=== PATIENT | female | born 1995 | race Caucasian/White ===

== ENCOUNTER 2016-12-21 06:36 | Emergency (ER) | payer MEDICAID ==
[~2016-12-21] VITALS: Ht 162.6 cm; Wt 45.5 kg
[~2016-12-21 06:36] MED LIST: BENZ0.5T PO; CLON0.5T PO; DOXE10CA PO; OLAN15TA3 PO; ZIPR80CA2 PO
[2016-12-21 06:37] VITALS: BP 121/65
[2016-12-21] MEDS ORDERED: ONDANSETRON 2MG/ML, 2ML ONE (06:55)
[2016-12-21] MEDS ORDERED: FAMOTIDINE 20 MG/2 ML ONE (06:55)
[2016-12-21] MEDS ORDERED: FAMOTIDINE 20 MG/2 ML IVP ONE (07:00)
[2016-12-21] MEDS ORDERED: SODIUM CHLORIDE 0.9% 1,000ML IVBOLUS ONE (07:00)
[2016-12-21] MEDS ORDERED: ONDANSETRON 2MG/ML, 2ML IVPush ONE (07:00)
[2016-12-21 07:23] LABS: ASPARTATE AMINO TRANSFERASE 12 U/L (15-37); BLOOD UREA NITROGEN 8 mg/dL (7-18)
[2016-12-21] MEDS ORDERED: LORazepam 2 MG/ML, 1ML ONE (07:44)
[2016-12-21] MEDS ORDERED: LORazepam 2 MG/ML, 1ML IVPush ONE (08:00)
== END 2016-12-21 07:53 | disposition left against medical advice (07) ==
LOC: ED 07:18
DX: R11.2 Nausea with vomiting, unspecified (principal); Z88.8 Allergy status to other drugs, medicaments and biological substances
CPT/HCPCS: 36415; 80053; 84703; 85025; 96361; 96374; 96375; 99284; J2405; J7030; S0028

== ENCOUNTER 2018-08-30 15:18 | Emergency (ER) | payer MEDICAID, OTHER ==
[~2018-08-30] VITALS: Ht 160 cm; Wt 44.6 kg
[~2018-08-30 15:18] MED LIST changes: +ARIP10TA33 PO; -BENZ0.5T PO; +BENZ0.5T35 PO; +DOXY100C2 PO; +FURO40TA6 PO; +LEVO100T5 PO; +LISI-424 PO; +LOPE2CAP PO; +VALA500T PO
[2018-08-30 16:58] VITALS: BP 111/60
--- NOTE | 2018-08-30 17:03 | NUR ---
PT GIVEN DC INSTRUCTIONS AND SCRIPT, EDUCATED REGARDING DC RX FOR FLEXIRIL. PT A&O, RESPS EVEN AND UNLABORED, NADN. PT A&O, RESPS EVEN AND UNLABORED. NEURO INTACT, BILATERAL GRASPS EQUAL, NO DRIFT. PT AMB TO DC DESK WITH STEADY GAIT, ALL QUESTIONS ANSWERED.
== END 2018-08-30 17:07 | disposition home or self-care (01) ==
LOC: ED 16:53
DX: S09.8XXA Other specified injuries of head, initial encounter (principal); S16.1XXA Strain of muscle, fascia and tendon at neck level, initial encounter; F31.9 Bipolar disorder, unspecified; F17.200 Nicotine dependence, unspecified, uncomplicated; V49.50XA Passenger injured in collision with unspecified motor vehicles in traffic accident, initial encounter; Y92.413 State road as the place of occurrence of the external cause; Y93.89 Activity, other specified; Y99.8 Other external cause status
CPT/HCPCS: 70450; 72125; 99284

== ENCOUNTER 2019-11-28 19:18 | Emergency (ER) | payer MEDICAID ==
[~2019-11-28] VITALS: Ht 162.6 cm; Wt 57.5 kg
[~2019-11-28 19:18] MED LIST changes: -VALA500T PO; +VALA500T8 PO
--- NOTE | 2019-11-28 20:04 | NUR ---
PT PRESENTS WITH LLE SWELLING AND ERRYTHMA. PT DENIES TRAUMA TO EXTREMITY OR INSECT BITE OF ANY KIND. PT STATES SHE WOKE THIS AM AND HER LEG APPEARED NORMAL, THEN OVER THE LAST FIVE HRS HER LEG HAS SWOLLEN WITH APPROX 2+ EDEMA, ERRTHMA AND WARM TO THE TOUCH. PT STATES SHE ALSO HAS HAD A SORE THROAT FOR THE LAST COUPLE DAYS, A FEVER A COUPLE NIGHTS AGO, PT NOT SURE OF TEMP DEGREE. PT VERY DROWSY KEEPS FALLING ASLEEP DURING ASSESSMENT, DENIES DRUG USE/ETOH
[2019-11-28 20:18] LABS: HCG UR SG 1.018 (1.003-1.030); MICROSCOPIC NOT IND
--- NOTE | 2019-11-28 20:32 | NUR ---
ERMD IN TO UPDATE ON PT +HCG. AWAITING TAN ROOM SUPERVISOR US TECH FOR DUPLEX/OBS US
[2019-11-28 20:40] LABS: BASOPHILS # (AUTO) 0.04 x10^3/uL (0-0.1); BASOPHILS % (AUTO) 0 % (0-1); EOSINOPHILS # (AUTO) 0.12 x10^3/uL (0-0.4); EOSINOPHILS % (AUTO) 1 % (1-7); LYMPHOCYTES # (AUTO) 2.99 x10^3/uL (1-3.4); LYMPHOCYTES % (AUTO) 27 % (22-44); MD NO; MEAN CORPUSCULAR HEMOGLOBIN 29.8 pg (27.0-34.8); MEAN CORPUSCULAR HGB CONC 33.2 g/dL (32.4-35.8); MEAN CORPUSCULAR VOLUME 89.8 fL (80-100); MEAN PLATELET VOLUME 7.3 fL (7.4-10.4); MONOCYTES # (AUTO) 1.02 x10^3/uL (0.2-0.8); MONOCYTES % (AUTO) 9 % (2-9); NEUTROPHILS # (AUTO) 6.91 x10^3/uL (1.8-6.8); NEUTROPHILS % (AUTO) 62 % (42-75); PLATELET COUNT 284 x10^3/uL (130-400); RED BLOOD COUNT 3.96 x10^6/uL (3.82-5.3); RED CELL DISTRIBUTION WIDTH 13.6 % (9.6-15.2)
[2019-11-28 20:49] LABS: ALANINE AMINOTRANSFERASE 18 U/L (12-78); ANION GAP 5 mmol/L (5-15); CALCIUM 8.4 mg/dL (8.5-10.1); CHLORIDE 107 mmol/L (98-107); CREATININE 0.63 mg/dL (0.55-1.02)
[2019-11-28 20:51] LABS: ALKALINE PHOSPHATASE 59 U/L (45-117); BILIRUBIN,TOTAL 0.2 mg/dL (0.2-1.0); TOTAL PROTEIN 6.2 g/dL (6.4-8.2)
--- NOTE | 2019-11-28 21:11 | NUR ---
PT REPORT FROM CLARK ODOM. PT CARE TO BE ASSUMED.
--- NOTE | 2019-11-28 21:51 | NUR ---
PT RESTING QUIETLY ON GURNEY; AWAITING U/S. SIDE RAIL UP, CALL LIGHT W/IN REACH. NO ADDITIONAL NEEDS AT THIS TIME.
--- NOTE | 2019-11-28 21:56 | NUR ---
CALLED U/S. PER TECH, U/S's WERE COMPLETED.
--- NOTE | 2019-11-28 22:06 | NUR ---
PT REPORT TO CLARK THURMAN. PT CARE TRANSFERRED.
[2019-11-28 22:15] VITALS: BP 102/61
--- NOTE | 2019-11-28 22:16 | NUR ---
RECEVIED REPORT FROM SOPHIA RODAS. CARE ASSUMED. PT A&OX4, SITTING UP IN BED USING OWN CELL PHONE. DENIES ANY PAIN AND NEED TO USE RESTROOM. VSS. AWAITING RECHECK. CALL LIGHT IN REACH. FALL PRECAUTIONS IN PLACE.
--- NOTE | 2019-11-28 22:29 | NUR ---
ERP DR. SANDY AT BEDSIDE TO DISCUSS POC AND TEST RESULTS
--- NOTE | 2019-11-28 22:34 | NUR ---
BEDSIDE REPORT FROM CUCA RODAS, PT CARE TRANSFERRED AT THIS TIME. RESTING IN [facility], CALL LIGHT ON LAP, [facility].
--- NOTE | 2019-11-28 22:34 | NUR ---
REPORT AND TRANSFER OF CARE TO KAREY RODAS AT THIS TIME.
== END 2019-11-28 22:51 | disposition home or self-care (01) ==
LOC: ED 21:35
DX: O00.01 Abdominal pregnancy with intrauterine pregnancy (principal); L01.01 Non-bullous impetigo; J02.9 Acute pharyngitis, unspecified; M79.662 Pain in left lower leg; F17.200 Nicotine dependence, unspecified, uncomplicated; Z3A.01 Less than 8 weeks gestation of pregnancy; Z90.89 Acquired absence of other organs
CPT/HCPCS: 36415; 76801; 80053; 81003; 81025; 84702; 85025; 87081; 87880; 99285

== ENCOUNTER 2020-06-22 15:57 | Inpatient (IN) | payer MEDICAID ==
[~2020-06-22] VITALS: Ht 162.6 cm; Wt 54.5 kg
[2020-06-22] MEDS: LACTATED RINGERS 1,000 ML IV SCH ×5 (16:30→19:49)
[2020-06-22] MEDS ORDERED: MISOPROSTOL 200 MCG TABLET ONE (16:38)
[2020-06-22] MEDS ORDERED: AMPICILLIN 2 GM in SODIUM CHLORIDE 0.9% 100 ML IVPB ONE (16:38)
[2020-06-22] MEDS ORDERED: NEWBORN KIT ONE (16:38)
[2020-06-22] MEDS ORDERED: LIDOCAINE 1%, 20ML ONE (16:38)
[2020-06-22] MEDS ORDERED: OXYTOCIN 30U/ 0.9% NaCL 500ML 500 ML ONE (16:38)
[2020-06-22 16:43] LABS: AMPHETAMINE SCREEN, URINE Positive (Negative); BARBITURATE SCREEN, URINE Negative (Negative); BENZODIAZEPINE SCREEN, URINE Negative (Negative); CANNABINOID SCREEN, URINE Positive (Negative); COCAINE SCREEN, URINE Negative (Negative); METHADONE SCREEN, URINE Negative (Negative); OPIATE SCREEN, URINE Positive (Negative)
[2020-06-22 17:00] LABS: BASOPHILS % (AUTO) 0 % (0-1); EOSINOPHILS % (AUTO) 0 % (1-7); LYMPHOCYTES % (AUTO) 16 % (22-44); MEAN CORPUSCULAR HGB CONC 33.4 g/dL (32.4-35.8); MEAN PLATELET VOLUME 8.8 fL (7.4-10.4); MONOCYTES % (AUTO) 8 % (2-9); NEUTROPHILS % (AUTO) 76 % (42-75); PLATELET COUNT 262 x10^3/uL (130-400); RED BLOOD COUNT 4.29 x10^6/uL (3.82-5.3)
[2020-06-22] MEDS ORDERED: ONDANSETRON 2MG/ML, 2ML IVPush PRN (17:00)
[2020-06-22] MEDS ORDERED: OXYTOCIN 30U/ 0.9% NaCL 500ML 500 ML IV ONE (17:00)
[2020-06-22] MEDS ORDERED: TERBUTALINE 1 MG/ML, 1ML SQ PRN (17:00)
[2020-06-22] MEDS ORDERED: FENTANYL PF 100 MCG/2ML IVPush PRN (17:00)
[2020-06-22] MEDS ORDERED: CALCIUM CARBONATE 500 MG TAB.CHEW PO PRN (17:00)
[2020-06-22] MEDS: PLEASE ENTER HEIGHT AND WEIGHT MC SCH (17:00)
[2020-06-22] MEDS ORDERED: TERBUTALINE 1 MG/ML, 1ML IVPush PRN (17:00)
[2020-06-22] MEDS ORDERED: D5%-LACTATED RINGERS 1,000 ML IV SCH (17:00)
[2020-06-22 17:02] LABS: MD NO
[2020-06-22] MEDS ORDERED: BUPIVACAINE 0.25% ONE (17:11)
[2020-06-22] MEDS ORDERED: FENTANYL/BUPIV./NS/PF 250 ML EPIDCONT ONE (17:12)
[2020-06-22 17:47] LABS: MICROSCOPIC INDICATED
[2020-06-22] MEDS ORDERED: FENTANYL/BUPIV./NS/PF 250 ML EPIDCONT SCH (18:00)
[2020-06-22] MEDS ORDERED: AMPICILLIN 1 GM in SODIUM CHLORIDE 0.9% 100 ML IVPB SCH (18:00)
[2020-06-22] MEDS ORDERED: EPHEDRINE 50 MG/ML, 1ML IVPush PRN (18:00)
[2020-06-22] MEDS ORDERED: LACTATED RINGERS 1,000 ML IVBOLUS PRN (18:00)
[2020-06-22] MEDS ORDERED: LACTATED RINGERS 1,000 ML IV SCH (18:00)
[2020-06-22] MEDS ORDERED: OXYTOCIN 10 UNITS/ML, 1ML ONE (18:14)
[2020-06-22] MEDS ORDERED: ONDANSETRON 2MG/ML, 2ML ONE (18:14)
[2020-06-22] MEDS ORDERED: CEFAZOLIN 1,000 MG ONE (18:14)
[2020-06-22] MEDS ORDERED: HYDROmorphone 2 MG/ML, 1ML ONE (18:15)
[2020-06-22] MEDS ORDERED: FENTANYL PF 100 MCG/2ML ONE (18:15)
[2020-06-22] MEDS ORDERED: KETOROLAC 30 MG/1 ML ONE (18:54)
[2020-06-22] MEDS ORDERED: METHYLERGONOVINE 0.2 MG/ML IM PRN (19:30)
[2020-06-22] MEDS ORDERED: OXYcodone/APAP 5/325MG TABLET PO PRN (19:30)
[2020-06-22] MEDS ORDERED: SIMETHICONE 80 MG CHEW TAB PO PRN (19:30)
[2020-06-22] MEDS ORDERED: MORPHINE SULFATE 4 MG/ML, 1ML IVPush PRN (19:30)
[2020-06-22] MEDS ORDERED: IBUPROFEN 800 MG TABLET PO PRN (19:30)
[2020-06-22] MEDS ORDERED: MISOPROSTOL 200 MCG TABLET PR PRN (19:30)
[2020-06-22] MEDS ORDERED: morphine SULFATE 10 MG/ML, 1ML IVPush PRN (19:30)
[2020-06-22] MEDS ORDERED: DOCUSATE 100 MG CAPSULE PO PRN (19:30)
[2020-06-22] MEDS ORDERED: ONDANSETRON 2MG/ML, 2ML IV PRN ×2 (19:30→21:30)
[2020-06-22] MEDS: OXYTOCIN 30U/ 0.9% NaCL 500ML 500 ML IV SCH (19:49)
[2020-06-22] MEDS ORDERED: OXYcodone 5 MG/5 ML ORAL.SOL UDC ONE (20:56)
[2020-06-22] MEDS ORDERED: OXYcodone 5 MG/5 ML ORAL.SOL UDC PO PRN (21:30)
[2020-06-22] MEDS ORDERED: AZITHROMYCIN 500 MG in SODIUM CHLORIDE 0.9% 250 ML IV ONE (21:30)
[2020-06-22] MEDS ORDERED: OXYcodone 5 MG/5 ML ORAL.SOL UDC PO ONE (21:30)
[2020-06-22] MEDS ORDERED: LACTATED RINGERS 1,000 ML IVBOLUS ONE (21:30)
[2020-06-22] MEDS ORDERED: HYDROmorphone 2 MG/ML, 1ML IV PRN (21:30)
[2020-06-22 21:45] VITALS: BP 133/85
[2020-06-23] MEDS: PLEASE ENTER HEIGHT AND WEIGHT MC SCH (01:00)
[2020-06-23 01:15] VITALS: BP 138/88
[2020-06-23] MEDS: KETOROLAC 30 MG/1 ML IV SCH ×2 (01:15→07:26)
[2020-06-23] MEDS: OXYcodone/APAP 5/325MG TABLET PO PRN ×3 (01:16→09:55)
[2020-06-23 02:56] LABS: BASOPHILS % (AUTO) 0 % (0-1); EOSINOPHILS % (AUTO) 0 % (1-7); LYMPHOCYTES % (AUTO) 10 % (22-44); MEAN CORPUSCULAR HGB CONC 33.3 g/dL (32.4-35.8); MEAN PLATELET VOLUME 8.3 fL (7.4-10.4); MONOCYTES % (AUTO) 7 % (2-9); NEUTROPHILS % (AUTO) 83 % (42-75); PLATELET COUNT 235 x10^3/uL (130-400); RED BLOOD COUNT 3.91 x10^6/uL (3.82-5.3); RED CELL DISTRIBUTION WIDTH 13.2 % (9.6-15.2)
[2020-06-23 02:57] LABS: MD NO
[2020-06-23 04:30] VITALS: BP 134/83
[2020-06-23] MEDS: LACTATED RINGERS 1,000 ML IV SCH ×3 (05:15→09:48)
[2020-06-23] MEDS: OXYTOCIN 30U/ 0.9% NaCL 500ML 500 ML IV SCH (05:30)
[2020-06-23 07:25] VITALS: BP 145/72
[2020-06-23 08:00] VITALS: BP 126/77
[2020-06-23] MEDS ORDERED: PRENATAL VIT/IRON/FA 1 EACH TABLET PO SCH (09:00)
[2020-06-23 12:10] VITALS: BP 133/84
== END 2020-06-23 13:15 | disposition left against medical advice (07) | DRG 787 ==
LOC: LDOP 15:57 → LDIP 16:51 → 2NW 21:31
PROVIDERS: ADMIT Obstetrics & Gynecology; ATTEND Obstetrics & Gynecology
PROC: 10D00Z1 Extraction of Products of Conception, Low, Open Approach (ICD-10-PCS; principal; 2020-06-22)
DX: O77.9 Labor and delivery complicated by fetal stress, unspecified (principal); O99.324 Drug use complicating childbirth; Z37.0 Single live birth; Z3A.37 37 weeks gestation of pregnancy; O99.344 Other mental disorders complicating childbirth; F32.9 Major depressive disorder, single episode, unspecified; F41.9 Anxiety disorder, unspecified; O99.52 Diseases of the respiratory system complicating childbirth; J45.909 Unspecified asthma, uncomplicated; F15.10 Other stimulant abuse, uncomplicated; F12.10 Cannabis abuse, uncomplicated; F11.10 Opioid abuse, uncomplicated
CPT/HCPCS: 36415; 80307; 81001; 82570; 84156; 85025; 86592; 86762; 86803; 86850; 86900; 87086; 87340; 87635; 87806; 88307; G0378; J0290; J0456; J0690; J1170; J1885; J2405; J3010; G0475; J2590; J7050; J7120

== ENCOUNTER 2020-06-23 17:46 | Emergency (ER) | payer MEDICAID ==
[~2020-06-23] VITALS: Ht 162.6 cm; Wt 75.4 kg
[2020-06-23] MEDS ORDERED: SODIUM CHLORIDE FLUSH 10ML SYR IVF ONE (18:00)
[2020-06-23] MEDS ORDERED: LORazepam 2 MG/ML, 1ML IVPush ONE (18:30)
--- NOTE | 2020-06-23 18:45 | NUR ---
PT C/O INCISION BLEEDING AND SUPPORT SYSTEM WHO REQUESTED PT TO GO BACK TO HOSPITAL. PT CHECKED OUT AMA FROM THE HOSPITAL THIS AM. PT HAD A YESTERDAY AND DELIVERED A BABY GIRL. PT HAS EDEMA TO LOWER EXTS AND HANDS.
[2020-06-23 18:50] LABS: BASOPHILS % (AUTO) 0 % (0-1); EOSINOPHILS % (AUTO) 0 % (1-7); LYMPHOCYTES % (AUTO) 12 % (22-44); MEAN CORPUSCULAR HEMOGLOBIN 29.6 pg (27.0-34.8); MEAN PLATELET VOLUME 8.5 fL (7.4-10.4); MONOCYTES % (AUTO) 8 % (2-9); NEUTROPHILS % (AUTO) 80 % (42-75); PLATELET COUNT 273 x10^3/uL (130-400); RED BLOOD COUNT 3.78 x10^6/uL (3.82-5.3); RED CELL DISTRIBUTION WIDTH 13.4 % (9.6-15.2)
[2020-06-23 18:57] LABS: ALANINE AMINOTRANSFERASE 20 U/L (12-78); ALBUMIN 2.1 g/dL (3.4-5.0); ANION GAP 6 mmol/L (5-15); CALCIUM 8.1 mg/dL (8.5-10.1); CHLORIDE 111 mmol/L (98-107); CREATININE 0.86 mg/dL (0.55-1.02)
[2020-06-23 18:59] LABS: MICROSCOPIC AUTO
[2020-06-23 19:00] LABS: ALKALINE PHOSPHATASE 142 U/L (45-117); BILIRUBIN,TOTAL 0.3 mg/dL (0.2-1.0); TOTAL PROTEIN 5.2 g/dL (6.4-8.2)
--- NOTE | 2020-06-23 19:00 | NUR ---
LATE ENTRY D/T PT CARE: BEDSIDE REPORT FROM PRATIMA RODAS. REPORTS DEVELOPER AT . PT RESTING COMFORTABLY ON HIRO, DENIES ADDITIONAL QUESTIONS OR NEEDS AT THIS TIME. [facility], UPDATED ON POC. [facility] AT FOR EVAL AND POC. Addendum: 06/23/20 at 1913 by GHAZALA Amendment undone in EDM - 06/23/20 at 1913 by GHAZALA DOUG
[2020-06-23 19:10] LABS: AMPHETAMINE SCREEN, URINE Positive (Negative); BARBITURATE SCREEN, URINE Negative (Negative); BENZODIAZEPINE SCREEN, URINE Negative (Negative); CANNABINOID SCREEN, URINE Negative (Negative); COCAINE SCREEN, URINE Negative (Negative); METHADONE SCREEN, URINE Negative (Negative); OPIATE SCREEN, URINE Positive (Negative)
[2020-06-23 19:17] LABS: MD SCAN
[2020-06-23] MEDS ORDERED: LORazepam 2 MG/ML, 1ML ONE (19:21)
[2020-06-23 19:57] VITALS: BP 129/82
--- NOTE | 2020-06-23 20:15 | NUR ---
Patient given discharge instructions and they have confirmed that they understand the instructions. Patient ambulatory with steady gait. states mom is picking her up, nad, all additional questions answered appropriately. no personal belongings left in room after dc.
== END 2020-06-23 20:27 | disposition home or self-care (01) ==
LOC: ED 18:14
DX: R10.30 Lower abdominal pain, unspecified (principal); R60.0 Localized edema; F41.1 Generalized anxiety disorder
CPT/HCPCS: 36415; 80053; 80307; 81001; 85025; 96374; 99283; J2060

== ENCOUNTER 2021-01-29 19:40 | Emergency (ER) | payer MEDICAID ==
[~2021-01-29] VITALS: Ht 162.6 cm; Wt 63.6 kg
[~2021-01-29 19:40] MED LIST changes: -LISI-424 PO; +LISI-606 PO
[2021-01-29 19:41] VITALS: BP 114/63
--- NOTE | 2021-01-29 19:51 | NUR ---
PATIENT REPORTS SHE STARTED HAVING CRAMPS TODAY AT APPROX 1330. DENIES ANY BLEEDING OR DISCHARGE.
[2021-01-29 20:24] LABS: BASOPHILS % (AUTO) 1 % (0-1); EOSINOPHILS % (AUTO) 2 % (1-7); LYMPHOCYTES % (AUTO) 25 % (22-44); MEAN CORPUSCULAR HEMOGLOBIN 30.1 pg (27.0-34.8); MEAN CORPUSCULAR HGB CONC 34.2 g/dL (32.4-35.8); MEAN PLATELET VOLUME 7.2 fL (7.4-10.4); MONOCYTES % (AUTO) 9 % (2-9); NEUTROPHILS % (AUTO) 65 % (42-75); PLATELET COUNT 255 x10^3/uL (130-400); RED BLOOD COUNT 4.19 x10^6/uL (3.82-5.3); RED CELL DISTRIBUTION WIDTH 14.1 % (9.6-15.2)
--- NOTE | 2021-01-29 21:10 | NUR ---
PATIENT RETURNED US
--- NOTE | 2021-01-29 21:51 | NUR ---
Patient given discharge instructions and they have confirmed that they understand the instructions. Patient ambulatory with steady gait. NAD, all questions answered appropriately, denies additional needs at this time. No personal belongings left in room after discharge.
[2021-01-29 21:55] LABS: MICROSCOPIC NOT IND
== END 2021-01-29 21:53 | disposition home or self-care (01) ==
LOC: ED 21:14
DX: O26.891 Other specified pregnancy related conditions, first trimester (principal); R10.30 Lower abdominal pain, unspecified; O21.8 Other vomiting complicating pregnancy; Z87.891 Personal history of nicotine dependence; Z3A.01 Less than 8 weeks gestation of pregnancy
CPT/HCPCS: 36415; 76801; 81003; 84702; 85025; 99284